=== PATIENT | female | born 1965 | race Caucasian/White ===

== ENCOUNTER 2017-12-22 05:52 | Emergency (ER) | payer OTHER ==
[~2017-12-22] VITALS: Ht 165.1 cm; Wt 81.7 kg
[~2017-12-22 05:52] MED LIST: XANAX 0.5 MG0.5 M1 PO
[2017-12-22] MEDS ORDERED: PREDNISONE 20 M20 MG (06:04)
[2017-12-22] MEDS ORDERED: BREO ELLIPTA 11 EACH (06:05)
[2017-12-22 06:45] LABS: INFLUENZA A ANTIGEN None Detected (None Detect); INFLUENZA B ANTIGEN None Detected (None Detect)
[2017-12-22] MEDS ORDERED: TUSSIONEX PENN115 ML PO (07:07)
[2017-12-22 07:58] VITALS: BP 125/66
== END 2017-12-22 08:00 | disposition home or self-care (01) ==
LOC: M.ERS 05:52
PROVIDERS: Emergency Medicine
DX: J40 Bronchitis, not specified as acute or chronic (principal); Z90.710 Acquired absence of both cervix and uterus; Z98.890 Other specified postprocedural states; Z88.2 Allergy status to sulfonamides; Z87.891 Personal history of nicotine dependence

== ENCOUNTER 2019-01-29 14:30 | Emergency (ER) | payer OTHER ==
[~2019-01-29] VITALS: Ht 165.1 cm; Wt 83.9 kg
[~2019-01-29 14:30] MED LIST changes: +BREO ELLIPTA 11 EACH; +PREDNISONE 20 M20 MG; +TUSSIONEX PENN115 ML PO
[2019-01-29] MEDS ORDERED: ZOLOFT25 MG PO (14:41)
[2019-01-29] MEDS ORDERED: XANAX 0.5 MG0.5 MG PO (14:42)
[2019-01-29] MEDS ORDERED: PREMARIN PO (14:42)
[2019-01-29] MEDS ORDERED: LIPITOR10 MG PO (14:42)
[2019-01-29] MEDS ORDERED: AUGMENTIN 875-1 EACH PO (14:47)
[2019-01-29 15:26] VITALS: BP 133/75
[2019-01-29] MEDS ORDERED: ACETAMINOPHEN-1 EAC1 PO (15:33)
== END 2019-01-29 15:27 | disposition home or self-care (01) ==
LOC: M.ERS 14:30
DX: S01.81XA Laceration without foreign body of other part of head, initial encounter (principal); Z87.891 Personal history of nicotine dependence; Z88.8 Allergy status to other drugs, medicaments and biological substances; Z90.710 Acquired absence of both cervix and uterus; Z98.890 Other specified postprocedural states; W54.0XXA Bitten by dog, initial encounter; Y92.89 Other specified places as the place of occurrence of the external cause; Y93.89 Activity, other specified; Y99.8 Other external cause status

== ENCOUNTER 2019-01-30 16:55 | Inpatient (IN) | payer OTHER ==
[~2019-01-30] VITALS: Ht 165.1 cm; Wt 86.2 kg
--- NOTE | ~2019-01-30 | CON ---
[address] [address] CONSULTATION Name: KINGBECKA E Room: [address] M.R.#: [id number] Admission: 01/30/19 Attend Phys: Danis Larios MD Discharge: Date of : 63 Report #: [id number] THIS REPORT FOR: //name// CC: Danis Rogel DATE OF SERVICE: 01/31/2019 INFECTIOUS DISEASE CONSULTATION: ATTENDING PHYSICIAN: Danis Larios MD. REASON FOR EVALUATION: Dog bite to the chin complicated by skin and soft tissue infection. HISTORY OF PRESENT ILLNESS: Chart reviewed, patient examined. This is a 53-year-old woman without significant medical history who presented to the Emergency Room for a second time yesterday, had been bitten by a dog, I believe, the 13th right on the chin. It was somewhat of a provoked attack and that it was her dog; however, he was startled and bit her on the chin and did create significant bleeding. She was evaluated, irrigated with saline and sutured. Postop was complicated by increasing inflammation. She noted swelling, redness and severe pain. There was some purulent drainage as well. There was red streaking down her neck. She returned to the Emergency Room and subsequently admitted. She was placed empirically on ampicillin and sulbactam. Overall, she is clinically improved. She noted she had been in retrospect encephalopathic. She had some lightheadedness when she was up, experienced fevers as well. Denied any dysphagia or dyspnea. ALLERGIES: BACTRIM. CURRENT MEDICATIONS: Include Unasyn, enoxaparin, hydralazine, p.r.n. analgesics and antiemetics. PAST MEDICAL HISTORY: History of dengue fever, breast reconstruction, hysterectomy, , pneumonia, pleurisy. SOCIAL HISTORY: Past cigarette use and occasional ethanol. FAMILY HISTORY: Noncontributory. REVIEW OF SYSTEMS: Otherwise, unremarkable 10-point review of system except noted the above. PHYSICAL EXAMINATION: GENERAL: She is alert, cooperative, appropriate, in mild [place] [address] CONSULTATION Name: BECKA NASSAR Room: [address] IN [facility]#: [id number] Admission: 01/30/19 Attend Phys: Danis Larios MD Discharge: Date of : 63 Report #: [id number] oriented at this point, appears to be generally well nourished. VITAL SIGNS: Temperature 97.8, pulse 70, respirations 14, blood pressure 112/69. SKIN: Warm, dry. HEENT: Normocephalic. Extraocular muscles intact. NECK: Supple. She has got 2 sites on her chin with moderate degree of inflammation. There is no any overt purulence at this point. NECK: Without evidence of lymphangitis. LUNGS: Clear to auscultation. HEART: Regular rate and rhythm without murmur. ABDOMEN: Soft, nontender, nondistended. EXTREMITIES: No cyanosis. GENITOURINARY: Deferred. RECTAL: Deferred. LABORATORY DATA: Blood cultures are sterile thus far. Initial CBC: White count of 5.4, H and H 12.8 and 37.5, platelets of 218. Electrolytes: Sodium 144, potassium 3.9, chloride 108, bicarbonate is 28, BUN and creatinine 15 and 0.8, glucose of 106. LFTs unremarkable. Albumin 3.7, total protein 6.6. Estimated GFR of 75. Lactic acid 1.0. CT of the facial bones showed mild edema within the soft tissue of the chin without abscess or acute osseous abnormality. ASSESSMENT: Dog bite injury complicated by infection to the patient's chin. Agree with ampicillin and sulbactam. It should give us good coverage based on what is often found in animal bites. She apparently has responded to some extent of therapy thus far. Continue to monitor expectantly. It is not clear whether I will have to remove the sutures at this point. We will follow. By: [id number] Lynn MD /robbei
[~2019-01-30 16:55] MED LIST changes: +ACETAMINOPHEN-1 EAC1 PO; +AUGMENTIN 875-1 EACH PO; +LIPITOR10 MG PO; +PREMARIN PO; +XANAX 0.5 MG0.5 MG PO; +ZOLOFT25 MG PO
[2019-01-30 17:21] VITALS: BP 139/79
[2019-01-30 17:38] LABS: ABSOLUTE EOSINOPHILS 0.1 thou/uL (0.0-0.7); ABSOLUTE LYMPHOCYTES 1.9 thou/uL (0.8-5.3); ABSOLUTE MONOCYTES 0.4 thou/uL (0.0-1.2); BASOPHILS 0.9 %; EOSINOPHILS 1.3 %; HEMATOCRIT 37.5 % (37.0-47.0); HEMOGLOBIN 12.8 gm/dL (12.0-15.0); LYMPHOCYTES 35.4 %; MCH 31.9 pg (26.0-34.0); MCHC 34.2 g/dL (28.0-37.0); MCV 93.3 fL (80.0-100.0); MONOCYTES 7.2 %; MPV 8.6 fl. (7.2-11.1); NUCLEATED RBCS 0 /100WBC; PLATELET COUNT* 218 thou/uL (150-400); POLYS 55.2 %; RBC 4.01 mil/uL (4.20-5.00); RDW-CV 13.2 % (10.5-14.5); WBC 5.4 thou/uL (4.0-11.0)
[2019-01-30 17:45] LABS: CALCIUM 8.5 mg/dL (8.5-10.1); CREATININE 0.8 mg/dL (0.6-1.3); POTASSIUM 3.9 mmol/L (3.5-5.1)
[2019-01-30 17:49] LABS: ALBUMIN 3.7 g/dL (3.4-5.0); TOTAL BILIRUBIN 0.3 mg/dL (<0.1-1.0); TOTAL PROTEIN 6.6 g/dL (6.4-8.2)
[2019-01-30 18:35] VITALS: BP 139/79
[2019-01-30 20:00] VITALS: BP 110/60
[2019-01-31 04:20] LABS: ABSOLUTE EOSINOPHILS 0.1 thou/uL (0.0-0.7); ABSOLUTE MONOCYTES 0.3 thou/uL (0.0-1.2); ABSOLUTE NEUTROPHILS 1.9 thou/uL (1.6-8.1); BASOPHILS 0.9 %; EOSINOPHILS 2.6 %; HEMATOCRIT 35.2 % (37.0-47.0); LYMPHOCYTES 45.7 %; MCV 94.2 fL (80.0-100.0); MONOCYTES 7.6 %; MPV 8.7 fl. (7.2-11.1); NUCLEATED RBCS 0 /100WBC; PLATELET COUNT* 176 thou/uL (150-400); POLYS 43.2 %; RBC 3.74 mil/uL (4.20-5.00); RDW-CV 13.2 % (10.5-14.5); WBC 4.4 thou/uL (4.0-11.0)
[2019-01-31 04:33] LABS: CALCIUM 8.1 mg/dL (8.5-10.1); CREATININE 0.7 mg/dL (0.6-1.3); POTASSIUM 3.9 mmol/L (3.5-5.1)
[2019-01-31 07:30] VITALS: BP 112/69
[2019-01-31 16:29] VITALS: BP 110/72
[2019-01-31 20:20] VITALS: BP 137/74
[2019-02-01 08:30] VITALS: BP 114/78
[2019-02-01] MEDS ORDERED: PREMARIN0.625 MG PO (13:34)
[2019-02-01 13:50] VITALS: BP 114/78
== END 2019-02-01 14:37 | disposition home or self-care (01) | DRG 603 ==
LOC: M.ERS 16:55 → M.ORTHSURG 17:45 → M.TBA-ER 17:45 → M.ORTHSURG 18:37
PROVIDERS: Nurse Practitioner Family; ADMIT Internal Medicine
DX: L03.211 Cellulitis of face (principal); R65.10 Systemic inflammatory response syndrome (SIRS) of non-infectious origin without acute organ dysfunction; S01.85XA Open bite of other part of head, initial encounter; Z90.710 Acquired absence of both cervix and uterus; I10 Essential (primary) hypertension; Z88.2 Allergy status to sulfonamides; Z88.8 Allergy status to other drugs, medicaments and biological substances; Z87.891 Personal history of nicotine dependence; W54.0XXA Bitten by dog, initial encounter; Y93.89 Activity, other specified; Y92.89 Other specified places as the place of occurrence of the external cause; Y99.8 Other external cause status